=== PATIENT | female | born 1995 | race Caucasian/White ===

== ENCOUNTER 2019-05-07 06:02 | Inpatient (IN) ==
[2019-05-07] MEDS ORDERED: FAMOTIDINE 20 MG/2 ML VIAL IV PRN (06:19)
[2019-05-07] MEDS ORDERED: ceFAZolin 2,000 MG in SYRINGE 1 EACH IV PRN (06:19)
[2019-05-07] MEDS ORDERED: CITRIC ACID/SODIUM CITRATE 30 ML UDCUP PO PRN (06:19)
[2019-05-07] MEDS ORDERED: OXYTOCIN/LR 20 UNIT/1,000 ML BAG IV PRN (06:21)
[2019-05-07 06:42] LABS: Basophils % 0.3 % (0.0-0.8); Eosinophils # 0.4 10*3/uL (0.0-0.87); Eosinophils % 4.3 % (0.00-10.9); Hematocrit 34.1 VOL% (35.7-47.0); Hemoglobin 10.8 GM/DL (12.0-16.0); Immature Granulocytes % 0.6 %; Immature Granulocytes Absolute 0.06 #; Lymphocytes # 2.7 10*3/uL (1.4-4.0); Lymphocytes % 28.5 % (21.3-54.2); Mean Corpuscular HGB Conc 31.7 GM/DL (32-36); Mean Corpuscular Volume 96.3 FL (87-102); Mean Platelet Volume 11.3 FL (9.6-12.0); Monocytes % 5.2 % (1.7-12.7); Neutrophils % 61.1 % (38.7-73.9); Platelet Count 170 T/CUMM (130-400); Red Blood Count 3.54 MC/CUMM (3.8-5.5); Red Cell Distribution Width 15.4 % (9.3-17.3); White Blood Count 9.5 T/CUMM (4-12)
[2019-05-07 06:58] LABS: Albumin 2.6 G/DL (3.4-5.0); Bilirubin,Total 0.4 MG/DL (0.2-1.0); Calcium 8.7 MG/DL (8.5-10.1); Osmolality,Calculated 271.7 MOS/KG (273-304); Total Protein 6.7 G/DL (6.4-8.3)
[2019-05-07] MEDS ORDERED: miSOPROStol 200 MCG TABLET ONE (07:05)
[2019-05-07] MEDS ORDERED: TRANEXAMIC ACID 1,000 MG/10 ML VIAL ONE (07:05)
[2019-05-07] MEDS ORDERED: CARBOPROST TROMETHAMINE 250 MCG/ML AMP IM ONE (07:06)
[2019-05-07] MEDS ORDERED: METHYLERGONOVINE 0.2 MG/1 ML AMP ONE (07:06)
[2019-05-07 07:21] LABS: Apearance,Urine CLEAR (Clear); Bilirubin,Urine Negative (Negative); Blood, Urine Negative (Negative); Glucose,Urine (UA) Negative (Negative); Ketones,Urine Negative (Negative); Mucus,Urine Occasional /LPF (Occasional); Nitrite,Urine Negative (Negative); Protein,Urine Negative; RBC,Urine <1 /HPF (0-4); Squamous Epithelial Cell,Urine Occasional /HPF (0-10); Urine Color Yellow (Yellow); Urine Specific Gravity 1.011 (1.001-1.035); Urine Urobilinogen < 2.0 EU/DL (0.2-1.0)
[2019-05-07 07:33] LABS: Barbiturates Screen,Urine Negative (Negative); Benzodiazepines Screen,Urine Negative (Negative); Cannabinoid Screen,Urine Negative (Negative); Opiate Screen,Urine Negative (Negative); Phencyclidine Screen,Urine Negative (Negative)
[2019-05-07] MEDS ORDERED: BICILLIN LA 2,400,000 UNIT/4 ML SYRINGE IM STA (07:40)
[2019-05-07 07:58] LABS: Rapid Plasma Reagin Confirm REACTIVE (Nonreactive)
[2019-05-07 08:22] LABS: Cord Arterial Blood HCO3 16.7 MMOL/L
[2019-05-07 08:23] LABS: Apearance,Urine CLEAR (Clear); Bacteria,Urine Occasional /HPF (Few); Bilirubin,Urine Negative (Negative); Blood, Urine Negative (Negative); Glucose,Urine (UA) Negative (Negative); Ketones,Urine Negative (Negative); Mucus,Urine Occasional /LPF (Occasional); Nitrite,Urine Negative (Negative); Protein,Urine Negative; Squamous Epithelial Cell,Urine Occasional /HPF (0-10); Urine Color Yellow (Yellow); Urine Specific Gravity 1.013 (1.001-1.035); Urine Urobilinogen < 2.0 EU/DL (0.2-1.0)
[2019-05-07] MEDS ORDERED: LANOLIN 50% CREAM 0.3 OZ TUBE TOP PRN (08:30)
[2019-05-07] MEDS ORDERED: OXYTOCIN/LR 20 UNIT/1,000 ML BAG IV ONE (08:30)
[2019-05-07] MEDS ORDERED: RHO(D) IMMUNE GLOBULIN 300 MCG SYRINGE IM ONE (08:30)
[2019-05-07] MEDS ORDERED: WITCH HAZEL PADS 100/JAR TOP PRN (08:30)
[2019-05-07] MEDS ORDERED: BENZOCAINE 20%/MENTHOL 0.5% SPRAY 56 GM CAN TOP PRN (08:30)
[2019-05-07] MEDS ORDERED: BISACODYL 10 MG SUPP RECTAL PRN (08:30)
[2019-05-07] MEDS ORDERED: oxyCODONE/ACETAMINOPHEN 5-325 MG TABLET PO PRN (08:30)
[2019-05-07] MEDS ORDERED: MEASLES/MUMPS/RUBELLA VACCINE 0.5 ML VIAL SUBCUT ONE (08:30)
[2019-05-07] MEDS ORDERED: ACETAMINOPHEN 325 MG TABLET PO PRN (08:30)
[2019-05-07] MEDS ORDERED: DIPH/TET/ACEL PERT BOOSTER VACCINE 0.5 ML VIAL IM ONE (08:30)
[2019-05-07] MEDS ORDERED: HYDROCORTISONE 2.5% RECTAL CREAM 30 GM TUBE TOP PRN (08:30)
[2019-05-07] MEDS ORDERED: ONDANSETRON 4 MG/2 ML VIAL IV PRN (08:30)
[2019-05-07] MEDS ORDERED: hydrOXYzine HCL 25 MG/1 ML VIAL IM PRN (09:18)
[2019-05-07] MEDS ORDERED: diphenhydrAMINE 50 MG/1 ML VIAL IV PRN (09:18)
[2019-05-07] MEDS ORDERED: HYDROmorphone 2 MG/1 ML VIAL IV PRN (09:18)
[2019-05-07 10:32] LABS: HIV Antigen/Antibody Result Nonreactive (Nonreactive); Hepatitis B Surface Ag Quant 0.14 Index; Hepatitis B Surface Ag Result Negative (Negative); Hepatitis C Virus Ab Quant > 11.00 Index; Hepatitis C Virus Ab Result Positive (Negative)
[2019-05-07] MEDS ORDERED: BUPIVACAINE SPINAL 0.75% 2 ML AMP SPINAL ONE (10:52)
[2019-05-07] MEDS ORDERED: BUPIVACAINE 0.5% 50 ML VIAL ONE (10:52)
[2019-05-07] MEDS ORDERED: EPINEPHrine 1 MG/ML VIAL ONE (10:53)
[2019-05-07] MEDS ORDERED: LACTATED RINGERS 1,000 ML IV ONE (10:53)
[2019-05-07] MEDS ORDERED: fentaNYL 100 MCG/2 ML VIAL ONE (10:53)
[2019-05-07] MEDS ORDERED: MORPHINE 10 MG/10 ML VIAL ONE (10:53)
[2019-05-07] MEDS ORDERED: DEXAMETHASONE 4 MG/1 ML VIAL ONE (10:53)
[2019-05-07] MEDS ORDERED: PHENYLEPHRINE 1 MG/10 ML SYRINGE IV ONE (10:53)
[2019-05-07] MEDS ORDERED: ONDANSETRON 4 MG/2 ML VIAL ONE (10:53)
[2019-05-07] MEDS ORDERED: LIDOCAINE 1% 5 ML VIAL ONE (10:56)
[2019-05-07] MEDS ORDERED: ceFAZolin 1,000 MG in SYRINGE 1 EACH IV SCH (15:00)
[2019-05-07] MEDS: ceFAZolin 1,000 MG in SYRINGE 1 EACH IV SCH (17:11)
[2019-05-07] MEDS: LACTATED RINGERS 1,000 ML IV SCH ×2 (17:12→17:13)
[2019-05-07] MEDS: DOCUSATE SODIUM 100 MG CAPSULE PO SCH ×2 (17:12→21:44)
[2019-05-07] MEDS: IBUPROFEN 800 MG TABLET PO PRN (21:47)
[2019-05-08] MEDS: LACTATED RINGERS 1,000 ML IV SCH (00:21)
[2019-05-08] MEDS: ceFAZolin 1,000 MG in SYRINGE 1 EACH IV SCH (01:36)
[2019-05-08 07:53] LABS: Basophils % 0.3 % (0.0-0.8); Eosinophils # 0.2 10*3/uL (0.0-0.87); Eosinophils % 1.3 % (0.00-10.9); Hematocrit 35.5 VOL% (35.7-47.0); Hemoglobin 11.1 GM/DL (12.0-16.0); Immature Granulocytes % 0.6 %; Immature Granulocytes Absolute 0.08 #; Lymphocytes # 3.5 10*3/uL (1.4-4.0); Lymphocytes % 26.1 % (21.3-54.2); Mean Corpuscular HGB Conc 31.3 GM/DL (32-36); Mean Platelet Volume 11.8 FL (9.6-12.0); Monocytes % 5.2 % (1.7-12.7); Neutrophils % 66.5 % (38.7-73.9); Platelet Count 191 T/CUMM (130-400); Red Blood Count 3.66 MC/CUMM (3.8-5.5); Red Cell Distribution Width 15.3 % (9.3-17.3); White Blood Count 13.5 T/CUMM (4-12)
[2019-05-08] MEDS: DOCUSATE SODIUM 100 MG CAPSULE PO SCH ×2 (08:32→21:51)
[2019-05-08] MEDS: IBUPROFEN 800 MG TABLET PO PRN (08:32)
[2019-05-08] MEDS: oxyCODONE/ACETAMINOPHEN 5-325 MG TABLET PO PRN ×2 (14:45→21:55)
[2019-05-08] MEDS ORDERED: MAGNESIUM HYDROXIDE SUSP 30 ML UDCUP PO PRN (21:52)
[2019-05-09 07:19] VITALS: BP 151/89
[2019-05-09] MEDS: oxyCODONE/ACETAMINOPHEN 5-325 MG TABLET PO PRN (07:22)
== END 2019-05-09 08:45 | disposition home or self-care (01) | DRG 540 ==
LOC: N.LD 06:02 → N.OB 10:35
PROVIDERS: ADMIT Specialist; ATTEND Specialist
PROC: LDCSECT (ICD-10-PCS; 2019-05-07 07:45)